=== PATIENT | female | born 1960 | race Caucasian/White ===

== ENCOUNTER 2020-08-24 06:20 | Day surgery (SDC) | payer OTHER, MEDICAID ==
[2020-08-22 15:24] LABS: COVID AG,FIA SOURCE NASOPHARYNGEAL
[~2020-08-24] VITALS: Ht 149.9 cm; Wt 66.4 kg
[~2020-08-24 06:20] MED LIST: ALBU90AE2 IH; ASPI-1444 PO; ATOR40TA71 PO; BUDE10.2 IH; CHOL20002 PO; CLOP75TA32 PO; DOXY100C40 PO; ESCI10 PO; FLUT16H NASAL; INSLAN SQ; INSNOV SQ; LORA-999 PO; METF-446 PO; METO50 PO; MONT10TA32 PO; PANT40TA54 PO; PRED10 PO
[2020-08-24] MEDS ORDERED: SODIUM CHLORIDE 0.9% 1,000 ML ONE (06:22)
[2020-08-24] MEDS ORDERED: SODIUM CHLORIDE 0.9% 1,000 ML IV ONE (06:30)
[2020-08-24] MEDS ORDERED: MIDAZOLAM HCL 2 MG/2 ML VIAL ONE (07:27)
[2020-08-24] MEDS ORDERED: FentaNYL CITRATE PF 100 MCG/2 ML VIAL ONE (07:27)
[2020-08-24 07:49] LABS: GLUCOMETER DEV NAME(LOC) SDS.; GLUCOSE,POINT OF CARE 136 MG/DL (70-110)
[2020-08-24] MEDS ORDERED: MethylPREDNISolone SOD SUCC 125 MG/2 ML VIAL IVP ONE (09:15)
[2020-08-24] MEDS ORDERED: MethylPREDNISolone SOD SUCC 125 MG/2 ML VIAL ONE (09:42)
[2020-08-24] MEDS ORDERED: LIDOCAINE 2% 30 ML JELLY TP ONE (12:00)
[2020-08-24] MEDS ORDERED: LIDOCAINE 4% 50 ML SOLUTION TP ONE (12:00)
[2020-08-24] MEDS ORDERED: ALBUTEROL SULFATE 2.5 MG/0.5 ML NEB SOLUTION NEB ONE (12:00)
[2020-08-24] MEDS ORDERED: BENZOCAINE 20% 50 MCG/SPRAY 57 GM TP ONE (12:00)
[2020-08-24] MEDS ORDERED: OXYGEN THERAPY IH SCH (20:00)
== END 2020-08-24 11:00 | disposition home or self-care (01) ==
LOC: SURGERY 06:20
PROVIDERS: ATTEND Internal Medicine Critical Care Medicine
DX: J38.4 Edema of larynx (principal); B37.0 Candidal stomatitis; Z95.5 Presence of coronary angioplasty implant and graft; Z87.01 Personal history of pneumonia (recurrent); I10 Essential (primary) hypertension; E11.9 Type 2 diabetes mellitus without complications; Z79.899 Other long term (current) drug therapy; Z98.890 Other specified postprocedural states
CPT/HCPCS: 31623; 31624; 71045; 82962; 87015; 87070; 87101; 87205; 87206; 87220; 87426; 88108; 88184; 88185; 88312; 93005; C9803; J2250; J2930; J3010; J7030; J7613; Z7610

== ENCOUNTER → 2021-07-22 | Day surgery (SDC) | payer OTHER ==
[2021-07-19 12:40] LABS: COVID AG,FIA SOURCE NASOPHARYNGEAL
[~2021-07-22] VITALS: Ht 154.9 cm; Wt 70.9 kg
[~2021-07-22] MED LIST changes: +ALBUTEROL SULFATE 2.5 MG/0.5 ML NEB SOLUTION NEB ONE; +BENZOCAINE 20% 50 MCG/SPRAY 57 GM TP ONE; +BUDE10.27 IH; +DAPA10TA; +DOXY-336 PO; -DOXY100C40 PO; +DULO20CA27 PO; +FAMO20 PO; +FentaNYL CITRATE PF 100 MCG/2 ML VIAL ONE; +GABA-1181 PO; +LIDOCAINE 2% 30 ML JELLY TP ONE; +LIDOCAINE 4% 50 ML SOLUTION TP ONE; +LISI-892 PO; +MIDAZOLAM HCL 5 MG/ML VIAL ONE; +MONT-40 PO; -MONT10TA32 PO; +MethylPREDNISolone SOD SUCC 125 MG/2 ML VIAL IVP ONE; +MethylPREDNISolone SOD SUCC 125 MG/2 ML VIAL ONE; +OMEP-99 PO; +OXYGEN THERAPY IH SCH; +SODIUM CHLORIDE 0.9% 1,000 ML IV ONE; +SODIUM CHLORIDE 0.9% 1,000 ML ONE
[2021-07-22 07:31] LABS: GLUCOMETER DEV NAME(LOC) SDS.; GLUCOSE,POINT OF CARE 127 MG/DL (70-110)
== END | disposition still patient (30) ==
LOC: SURGERY 05:50
PROVIDERS: ATTEND Internal Medicine Critical Care Medicine
DX: J38.4 Edema of larynx (principal); B37.0 Candidal stomatitis; E11.9 Type 2 diabetes mellitus without complications; Z79.899 Other long term (current) drug therapy
CPT/HCPCS: 31623; 31624; 71045; 82962; 87015; 87070; 87101; 87206; 87220; 87426; 88112; 88184; 88185; 88312; C9803; J2250; J2930; J3010; J7030; J7613; Z7610

== ENCOUNTER 2022-10-06 06:38 | Day surgery (SDC) | payer OTHER ==
[~2022-10-06] VITALS: Ht 152.4 cm; Wt 72.3 kg
[~2022-10-06 06:38] MED LIST changes: -ALBUTEROL SULFATE 2.5 MG/0.5 ML NEB SOLUTION NEB ONE; -BENZOCAINE 20% 50 MCG/SPRAY 57 GM TP ONE; -DOXY-336 PO; -DULO20CA27 PO; +DULO20CA71 PO; -ESCI10 PO; -FLUT16H NASAL; +FLUT16SP NASAL; -FentaNYL CITRATE PF 100 MCG/2 ML VIAL ONE; -LIDOCAINE 2% 30 ML JELLY TP ONE; -LIDOCAINE 4% 50 ML SOLUTION TP ONE; -LORA-999 PO; -METF-446 PO; -MIDAZOLAM HCL 5 MG/ML VIAL ONE; -MethylPREDNISolone SOD SUCC 125 MG/2 ML VIAL IVP ONE; -MethylPREDNISolone SOD SUCC 125 MG/2 ML VIAL ONE; -OXYGEN THERAPY IH SCH; -PANT40TA54 PO; -PRED10 PO; -SODIUM CHLORIDE 0.9% 1,000 ML IV ONE; -SODIUM CHLORIDE 0.9% 1,000 ML ONE
[2022-10-06] MEDS ORDERED: SODIUM CHLORIDE 0.9% 1,000 ML ONE (06:54)
[2022-10-06] MEDS ORDERED: FentaNYL CITRATE PF 100 MCG/2 ML VIAL ONE (07:47)
[2022-10-06] MEDS ORDERED: MIDAZOLAM HCL 2 MG/2 ML VIAL ONE (07:47)
[2022-10-06 08:11] LABS: GLUCOMETER DEV NAME(LOC) SDS.; GLUCOSE,POINT OF CARE 130 MG/DL (70-110)
[2022-10-06] MEDS ORDERED: MethylPREDNISolone SOD SUCC 125 MG/2 ML VIAL ONE (08:50)
[2022-10-06] MEDS ORDERED: MethylPREDNISolone SOD SUCC 125 MG/2 ML VIAL IVP ONE (09:00)
[2022-10-06] MEDS ORDERED: SODIUM CHLORIDE 0.9% 1,000 ML IV ONE (09:00)
[2022-10-06] MEDS ORDERED: LIDOCAINE 2% 11 ML JELLY TP ONE (12:00)
[2022-10-06] MEDS ORDERED: BENZOCAINE 20% 50 MCG/SPRAY 57 GM TP ONE (12:00)
[2022-10-06] MEDS ORDERED: LIDOCAINE 4% 50 ML SOLUTION TP ONE (12:00)
== END 2022-10-06 10:40 | disposition home or self-care (01) ==
LOC: SURGERY 06:38
PROVIDERS: ATTEND Internal Medicine Critical Care Medicine
DX: J38.4 Edema of larynx (principal); B37.0 Candidal stomatitis; Z79.899 Other long term (current) drug therapy; I10 Essential (primary) hypertension; Z95.5 Presence of coronary angioplasty implant and graft; Z20.822 Contact with and (suspected) exposure to COVID-19; E78.00 Pure hypercholesterolemia, unspecified; M19.90 Unspecified osteoarthritis, unspecified site
CPT/HCPCS: 31623; 88112; 87206; 82962; 87101; 87220; 87070; 31624; 71045; 87015; 93005; J3010; J2250; J2930; Q9967; J7030; Z7610

== ENCOUNTER 2023-10-21 06:56 | Day surgery (SDC) | payer OTHER ==
[~2023-10-21 06:56] MED LIST changes: -ALBU90AE2 IH; +ALBU90AE3 IH; -ASPI-1444 PO; -BUDE10.2 IH; -DAPA10TA; -INSNOV SQ; -OMEP-99 PO; +SODIUM CHLORIDE 0.9% 1,000 ML ONE
[2023-10-21] MEDS ORDERED: ROSU20TA73 PO (08:03)
[2023-10-21] MEDS ORDERED: METH1TAB66 PO (08:03)
[2023-10-21] MEDS ORDERED: CELE200 PO (08:03)
[2023-10-21] MEDS ORDERED: MIDAZOLAM HCL 2 MG/2 ML VIAL ONE (08:04)
[2023-10-21] MEDS ORDERED: FentaNYL CITRATE PF 100 MCG/2 ML VIAL ONE (08:05)
[2023-10-21] MEDS: SODIUM CHLORIDE 0.9% 1,000 ML IV ONE (08:25)
[2023-10-21 08:30] LABS: GLUCOMETER DEV NAME(LOC) SDS.; GLUCOSE,POINT OF CARE 67 MG/DL (70-110)
[2023-10-21 09:11] VITALS: PULSE 63; RESP 20; O2SAT 93
[2023-10-21] MEDS ORDERED: MethylPREDNISolone SOD SUCC 125 MG/2 ML VIAL ONE (09:26)
[2023-10-21] MEDS: MethylPREDNISolone SOD SUCC 125 MG/2 ML VIAL IVP ONE (09:47)
[2023-10-21] MEDS ORDERED: LIDOCAINE 4% 50 ML SOLUTION ONE (12:00)
[2023-10-21] MEDS ORDERED: ALBUTEROL SULFATE 2.5 MG/0.5 ML NEB SOLUTION NEB ONE (12:00)
[2023-10-21] MEDS ORDERED: LIDOCAINE 2% 11 ML JELLY ONE (12:00)
[2023-10-21] MEDS ORDERED: BENZOCAINE 20% 50 MCG/SPRAY 57 GM ONE (12:00)
== END 2023-10-21 11:15 | disposition home or self-care (01) ==
LOC: SURGERY 06:56
PROVIDERS: ATTEND Internal Medicine Critical Care Medicine
DX: R05.3 Chronic cough (principal); R04.2 Hemoptysis; J98.09 Other diseases of bronchus, not elsewhere classified; J84.10 Pulmonary fibrosis, unspecified; J98.8 Other specified respiratory disorders; E11.9 Type 2 diabetes mellitus without complications; I10 Essential (primary) hypertension; Z85.21 Personal history of malignant neoplasm of larynx; Z79.4 Long term (current) use of insulin; Z79.899 Other long term (current) drug therapy
CPT/HCPCS: 31623; 31624; 71045; 82962; 87015; 87070; 87101; 87206; 87220; 88108; 94640; J2250; J2919; J3010; J7030; Q9967; J7613; Z7610